=== PATIENT | male | born 1980 | race Caucasian/White ===

== ENCOUNTER 2023-02-20 16:23 | Emergency (ER) | payer MEDICAID ==
[~2023-02-20] VITALS: Ht 182.9 cm; Wt 92.7 kg
[2023-02-20 16:33] VITALS: BP 140/90; PULSE 92; RESP 17; TEMP 98.1; O2SAT 98
[2023-02-20] MEDS ORDERED: chlordiazePOXIDE 25mg capsule PO ONE (21:30)
[2023-02-20] MEDS ORDERED: ondansetron 4mg rapidly disintigrating tab PO ONE (21:45)
[2023-02-20] MEDS ORDERED: cloNIDine 0.1 mg tablet PO ONE (21:45)
[2023-02-20] MEDS ORDERED: DICY10CA88 PO (21:49)
[2023-02-20] MEDS ORDERED: CHLO25CA10 PO (21:49)
[2023-02-20] MEDS ORDERED: ONDA4TAB12 PO (21:49)
--- NOTE | 2023-02-20 22:06 | NUR ---
PT BP IS 134/91 HR 70 FOR CLONIDINE 0.1MG
== END 2023-02-20 22:13 | disposition home or self-care (01) ==
LOC: ER 16:24
DX: F10.129 Alcohol abuse with intoxication, unspecified (principal); Z88.1 Allergy status to other antibiotic agents; Y90.9 Presence of alcohol in blood, level not specified
CPT/HCPCS: 99284